=== PATIENT | male | born 1985 | race Caucasian/White ===

== ENCOUNTER 2025-04-11 09:30 | Observation (INO) | payer SELFPAY ==
[2025-04-11] VITALS (13 sets, daily range): BP systolic 130–152; BP diastolic 79–92; PULSE 79–103; RESP 17–19; TEMP 36.7–37.8; O2SAT 94–100; BMI 27.8
--- NOTE | 2025-04-11 09:55 | ED_ITS ---
Discharge Plan Prescriptions Prescriptions: No Action No Known Home Medications Referrals Follow up/Referrals: Provider,Referral, [Primary Care Provider, Medical] - See instructions Clinical Impressions Clinical Impression: Cellulitis, Elevated CK Instructions Patient Instructions: DI for Laceration Repair Print Language Print Language: Salvadorean Discharge ED Provider: Kee Connell General Adult HPI General Chief complaint: Wound/Laceration Stated complaint: 04/09/25 Poss snake bite Time Seen by Provider: 04/11/25 09:39 Mode of Arrival: Ambulatory Source of Information: Patient Description of Symptoms (Recalled from ER Triage Doc. by RN): Patient presents to ED from [facility] with concerns for some type of insect bite to the mid left solorzano. Patient states he noticed the area 2 days prior, states it has been swollen, red, warm and painful and has continued to worsen. Patient states pain is now moved from the area to his entire left leg, notes pain worsens with ambulation. History of Present Illness HPI narrative: Lane Nguyễn is a 40y male who presents to the emergency department from [facility] due to concern for possible snake bite to his left lower extremity. 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 He states that today, he noticed a pain to his left solorzano that severely worsened today, to the point that it is extremely painful to walk. Reports that he is now having pain radiating up his left leg into the left groin. He notes that there is an area of redness to his left anterior solorzano and there are 2 small circular lesions within the skin. He denies any numbness or tingling. He is not sure if he was bitten by a snake or a bug as he states that he is constantly getting small pains in his legs due to bumping into things due to the nature of his work. He does state that he was wearing pants at the time. He does not remember a single incident where he had severe pain in this area. Related Data Home Medications ?Medication ?Instructions ?Recorded ?Confirmed No Known Home Medications 04/11/2503/31 Allergies Allergy/AdvReac Type Severity Reaction Status Date / Time Penicillins Allergy Unknown Verified 04/11/25 09:57 allergy reaction [facility] Disclaimer: The information contained in this section may have been updated after the patient was seen, as this information can be updated by other users. Medical History (Updated 04/11/25 @ 12:29 by Kee Connell MD) Cellulitis Social History Smoking Status: Current every day smoker alcohol intake: never current occupational status: employed Travel in the last 8 weeks?: Outside the [facility] ROS Obtained: Yes Systems reviewed as appropriate & no additional complaints except as documented Physical Exam General General appearance: alert and in no apparent distress Head Head exam: atraumatic Eye Eye exam: Present normal appearance ENT ENT exam: Present normal external ear exam Neck Neck exam: Present full ROM Chest Chest inspection: Present symmetric chest wall rise Respiratory Respiratory exam: Present normal lung sounds bilaterally; Absent respiratory distress Cardiovascular Cardiovascular exam: Present regular rate and normal rhythm Abdominal Exam Abdominal exam: Present soft; Absent tenderness or guarding exam: Present deferred Extremities Exam Extremities exam: Present normal inspection Back Exam Back exam: Present normal inspection Neurological Exam Neurological exam: Present alert and oriented X3 Psychiatric Psychiatric exam: Present normal affect Skin Skin exam: Present warm and dry Medical Decision Making Medical Records Screening: Per USPSTF and CDC recommendations, given the prevalence of disease in our region, it is our hospital?s policy to screen for HIV and viral Hepatitis for all patients aged 18 and over and those with ongoing risk factors. Juan Inquiry Pt receiving controlled substance: No Vital Signs: 04/11/25 09:36 04/11/25 09:39 04/11/25 09:40 Temperature 98.1 F Temperature Source Oral Pulse Rate 99 H 85 Pulse Rate [Left] 98 H Respiratory Rate 19 Blood Pressure 151/87 H 147/92 H Blood Pressure [Right Arm] 151/87 H Blood Pressure Mean Blood Pressure Mean [Right Arm] 108 Blood Pressure Source [Right Arm] Automatic Cuff Blood Pressure Position [Right Arm] Sitting 02 Sat by Pulse Oximetry 94 L 96 94 L Oxygen Delivery Method Room Air 04/11/25 09:45 04/11/25 10:00 04/11/25 11:08 Temperature Temperature Source Pulse Rate 95 H 95 H 87 Pulse Rate [Left] Respiratory Rate 17 17 Blood Pressure 152/88 H Blood Pressure [Right Arm] Blood Pressure Mean 101 Blood Pressure Mean [Right Arm] Blood Pressure Source [Right Arm] Blood Pressure Position [Right Arm] 02 Sat by Pulse Oximetry 96 96 100 Oxygen Delivery Method Room Air Room Air 04/11/25 11:20 04/11/25 11:41 04/11/25 12:00 Temperature Temperature Source Pulse Rate 94 H 89 79 Pulse Rate [Left] Respiratory Rate Blood Pressure 136/84 137/81 130/90 Blood Pressure [Right Arm] Blood Pressure Mean 95 103 100 Blood Pressure Mean [Right Arm] Blood Pressure Source [Right Arm] Blood Pressure Position [Right Arm] 02 Sat by Pulse Oximetry 95 98 98 Oxygen Delivery Method Room Air 04/11/25 12:20 Temperature Temperature Source Pulse Rate Pulse Rate [Left] Respiratory Rate Blood Pressure 148/85 H Blood Pressure [Right Arm] Blood Pressure Mean 100 Blood Pressure Mean [Right Arm] Blood Pressure Source [Right Arm] Blood Pressure Position [Right Arm] 02 Sat by Pulse Oximetry Oxygen Delivery Method Lab Data Lab Results 04/11/25 09:46: WBC 15.9 H, RBC 4.65, Hgb 15.3, Hct 44.4, MCV 95.5 H, MCH 32.9 H , MCHC 34.5, RDW 13.2, Plt Count 209, MPV 10.2, Neut % (Auto) 83.0 H, Lymph % (Auto) 6.8 L, Caroline % (Auto) 8.7, Eos % (Auto) 0.9, Baso % (Auto) 0.3, Neut # (Auto) 13.2 H, Lymph # (Auto) 1.1, Caroline # (Auto) 1.4 H, Eos # (Auto) 0.2, Baso # (Auto) 0.1, PT 10.3, INR 0.92, APTT 29.3, Fibrinogen 292, Sodium 138, Potassium 4.0, Chloride 106, Carbon Dioxide 21 L, Anion Gap 15.0, BUN 15, Creatinine 0.80, Estimated Creat Clear 169, Estimated GFR 108, Est GFR ( Amer) 131, G lucose 106 H, Calcium 9.4, Total Bilirubin 0.5, AST 35, ALT 23, Alkaline Phosphatase 56, Total Creatine Kinase 296 H, Total Protein 7.6, Albumin 4.8, Globulin 2.8, Albumin/Globulin Ratio 1.7 04/11/25 10:47: Urine Color Yellow, Urine Appearance Clear, Urine pH 6.0, Ur Specific [place] 1.020, Urine Protein Negative, Urine Glucose (UA) Negative, Urine Ketones 1+, Urine Blood Negative, Urine Nitrate Negative, Urine Bilirubin Negative, Urine Urobilinogen 0.2, Ur Leukocyte Esterase Negative, Urine RBC None, Urine WBC None, Ur Squamous Epith Cells Occasional, Urine Bacteria None 04/11/25 09:46 04/11/25 09:46 Orders (Tests/Meds): ED MEDICATIONS Generic Name Dose Route Start Last Admin Trade Name Freq PRN Reason Stop Dose Admin Vancomycin/PEG/NADA/Lysine/Water 1.75 gm in 350 mls @ 175 mls/hr 04/11/25 10:30 04/11/25 12:20 Vancomycin 1.75gm/350ml (Peg) Premix IV 04/11/25 12:29 Infused ONCE ONE Infusion Discontinued Medications Generic Name Dose Route Start Last Admin Trade Name Freq PRN Reason Stop Dose Admin Lactated Ringer's 1,000 mls @ 999 mls/hr 04/11/25 10:16 04/11/25 11:25 Lactated Ringer's 1000 Ml Bag IV 04/11/25 11:16 Infused .Q1H1M ONE Infusion Ketorolac Tromethamine 30 mg 04/11/25 09:54 04/11/25 09:59 Ketorolac 30mg/Ml Vial IV 04/11/25 09:55 30 mg ONCE ONE Administration Miscellaneous 1 each 04/11/25 10:15 04/11/25 10:18 Vancomycin Consult Request NOTAPPLIC 05/11/25 10:14 Not Given CONSULT PHARMACY [facility] ORDERS Category Date Time Status Fibula/tibia XR left 2 views [XR tibia fibula LT 2V] Exams 04/11/25 10:21 Completed Stat POCUS Point of Care (ER Only) Stat Exams 04/11/25 09:40 Completed CBC w/Auto Diff [Complete Blood Count Auto Diff] Stat Lab 04/11/25 09:46 Completed CK [Creatine Kinase] Stat Lab 04/11/25 09:46 Completed CMP [Comprehensive Metabolic Panel] Stat Lab 04/11/25 09:46 Completed CRP [C-Reactive Protein] Stat Lab 04/11/25 12:23 Ordered Fibrinogen Stat Lab 04/11/25 09:46 Completed PT INR [Prothrombin Time INR] Stat Lab 04/11/25 09:46 Completed PTT [Activated Partial Thrombo Time] Stat Lab 04/11/25 09:46 Completed Procalcitonin Stat Lab 04/11/25 12:23 Ordered UA [Urinalysis and Microscopic] Stat Lab 04/11/25 10:47 Completed Blood Culture Stat Micro 04/11/25 10:14 Received Medical Decision Narrative: Lane Nguyễn is a 40y male who presents to the emergency department from [facility] due to concern for possible snake bite to his left lower extremity. 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 He states that today, he noticed a pain to his left solorzano that severely worsened today, to the point that it is extremely painful to walk. Reports that he is now having pain radiating up his left leg into the left groin. He notes that there is an area of redness to his left anterior solorzano and there are 2 small circular lesions within the skin. He denies any numbness or tingling. He is not sure if he was bitten by a snake or a bug as he states that he is constantly getting small pains in his legs due to bumping into things due to the nature of his work. He does state that he was wearing pants at the time. He does not remember a single incident where he had severe pain in this area. On arrival, patient is mildly hypertensive with blood pressure 147/92, heart rate borderline tachycardic at 95. Afebrile at 98.1 ?F. Oxygen saturation 96% on room air. Physical exam, as stated above, revealed an overall well-appearing male in no distress. He has redness and tenderness over the left anterior solorzano. There do appear to be 2 small puncture wounds in the center of the area of erythema spaced a small distance apart that could represent fang puncture wounds. Patient has a small area of redness superior to the right knee at the distal thigh. Patient has left inguinal lymphadenopathy that is tender to touch as well. Sensory function is intact. Patient is not complaining of any numbness or tingling. Pulses are intact. Differential diagnosis includes, but is not limited to: Snake envenomation, cellulitis, NSTI, brown recluse/black bite, rhabdomyolysis, DVT, among others. The most morbid conditions were considered and workup was based on these. Workup in the emergency department included: [id number] soft tissue ultrasound, [id number] DVT ultrasound, CBC, CMP, fibrinogen, CK, PT/INR, PTT, blood culture. Patient was initially treated with 30 mg of IV Toradol for pain. Patient's initial lab work showed elevated white blood cell count at 15.9 with left shift. Platelets normal at 209. Given concern for cellulitis with an elevated white count, will administer vancomycin IV at this time and give 1 L lactated ringer. CMP showed mildly elevated CK at 296, however upper limit of normal is 170. This is not 3 times upper limit of normal and does not represent rhabdomyolysis. Will obtain urinalysis to evaluate for myoglobin in the urine. Electrolytes within normal limits. Carbon dioxide mildly low at 21. I spoke with Danial Shelby MD with Toxicology about the patient's case and shared picture of the patient's leg with him after getting consent from the patient to do so, and Dr. Shelby stated given that the patient is at least 12 to 24 hours out from the initial incident, and based on what he can see from the picture, he does not feel that CroFab is necessary at this time. He did agree with workup, that included coagulation studies, fibrinogen, CBC, CMP. Stated that is not unreasonable to treat with antibiotics and NSAIDs for pain. Also recommended tetanus shot if not up-to-date. Recommended x-ray of the extremity to ensure there is no retained fang. Will order left tib-fib x-ray at this time. Patient does state that his tetanus shot is up-to-date within the last 5 years, no indication for tetanus update. I did discuss the patient's case with the hospitalist, Dr. Floyd, for admission for continued management of his cellulitis and for compartment checks. He does not appear to be in rhabdomyolysis at this time, however I do feel close monitoring is indicated in this instance. Patient is agreeable to admission at this time as well. [facility] management of his cellulitis and for compartment checks. Procedures Limited Ultrasound Interpretation:: Limited MSK/soft tissue ultrasound Indication: [-Soft tissue or bone pain -Soft tissue swelling -Soft tissue redness -Fever -Decreased range of motion -Crepitus] Identified structures: Location: [] Findings: [-Normal soft tissue ultrasound] [-Abscess. Size (cm): -Cellulitis -Subcutaneous air -Foreign body] Impression: [-Normal limited soft tissue ultrasound] [-Abscess of soft tissue -Cellulitis of soft tissue -Foreign body in soft tissue -Necrotizing soft tissue infection] Images [were saved] to permanent archive The study [was] technically adequate Soft Tissue CPT Codes: CPT Neck: 42030-06 CPT Upper extremity: 54776-85 CPT Axilla: 51240-49 CPT Chest wall: 28913-97 CPT Breast: 22770-94-FS/LT (complete), 10971-07-HJ/LT (limited), CPT Upper Back: 66730-35 CPT Lower Back: 53710-01 CPT Abdominal Wall: 26258-23 CPT Pelvic Wall: 57285-18 CPT Lower Extremity: 24208-73 CPT Other Soft Tissue: 99529-99 This study was performed by me, and I personally interpreted all images/videos. Based on my clinical judgement, these images were [adequate/inadequate] and [did/did not] necessitate further imaging. Indication: Limited compression ultrasonography of the [RIGHT or LEFT or BILATERAL] [upper/lower extremity] was performed to evaluate for non-compressibility of the deep veins in the patient. The ultrasound was performed with the following indications, as noted in the H&P: [Leg/arm pain:] [L/R/bilateral] [Leg/arm swelling:] [L/R/bilateral] [Leg/arm erythema:] [L/R/bilateral] [-Chest Pain -Dyspnea -Tachypnea] Identified structures: [RIGHT or LEFT or BILATERAL] [common femoral vein, femoral vein, popliteal vein were examined.] [Ulnar vein, radial vein, cephalic vein, basilic vein, axillary vein.] Findings: Upper extremity: Right UV: [Good compressibility] Right RV: [Good compressibility] Right Cephalic vein: [Good compressibility] Right Basilic vein: [Good compressibility] Right Axillary vein: [Good compressibility] Left UV[Good compressibility] Left RV: [Good compressibility] Left Cephalic vein: [Good compressibility] Left Basilic vein: [Good compressibility] Left Axillary vein: [Good compressibility] Lower Extremity: Right CFV: [Good compressibility] Right FV: [Good compressibility] Right Popliteal vein: [Good compressibility] Left CFV: [Good compressibility] Left FV [Good compressibility] Left Popliteal vein: [Good compressibility] Impression: [Normal DVT ultrasound] Images [were saved] to permanent archive The study [was] technically adequate CPT: 56786-53-GR 44064-57-JZ 10765-91 (complete bilateral study) This study was performed by me, and I personally interpreted all images/videos. Based on my clinical judgement, these images were [adequate/inadequate] and [did/did not] necessitate further imaging. Critical Care Critical Care Time Critical Care Time: No
[2025-04-11 09:59] LABS: Hematocrit 44.4 % (42.0-52.0); Hemoglobin 15.3 g/dL (14.1-18.0); Immature Granulocytes % 0.3 %; Mean Corpuscular HGB Conc 34.5 g/dL (31.8-35.4); Mean Corpuscular Hemoglobin 32.9 pg (27.0-31.2); Mean Corpuscular Volume 95.5 fl (80-94); Nucleated Red Blood Cells % 0 %; Platelet Count 209 K/mm3 (142-424); Red Blood Count 4.65 M/mm3 (4.60-6.20); Red Cell Distribution Width-SD 46.5 fL; White Blood Count 15.9 K/mm3 (4.8-10.8)
[2025-04-11] MEDS: KETOROLAC 30MG/ML VIAL 30 MG IV (09:59)
[2025-04-11 10:06] LABS: Alanine Aminotransferase 23 U/L (12-78); Albumin Level 4.8 g/dl (3.5-5.0); Albumin/Globulin Ratio 1.7 (1.1-1.8); Alkaline Phosphatase 56 U/L (38-126); Anion Gap 15.0 mEq/L (5-15); Aspartate Amino Transferase 35 U/L (17-59); Bilirubin,Total 0.5 mg/dl (0.2-1.3); Blood Urea Nitrogen 15 mg/dl (9-20); Calcium 9.4 mg/dl (8.4-10.2); Carbon Dioxide 21 mmol/L (22.0-30.0); Chloride 106 mmol/L (98-107); Creatine Kinase 296 U/L (55-170); Creatinine Clearance Estimated 169 mL/min (50-200); Creatinine,Serum 0.80 mg/dl (0.66-1.25); Estimated Glomerular Filt Rate 108 ml/min (>60); GFR (African American) 131 ML/MIN (>60); Globulin 2.8 g/dL (1.3-3.2); Glucose 106 mg/dl (74-100); Potassium 4.0 mmoL/L (3.5-5.1); Sodium 138 mmol/L (136-145); Total Protein,Serum 7.6 g/dl (6.3-8.2)
--- NOTE | 2025-04-11 10:21 | XR_ITS ---
FINAL REPORT CLINICAL HISTORY: snake bite, left solorzano, retained fang? FINDINGS: AP and lateral views of the left tibia and fibula were obtained. There is no prior exam for comparison. There is no acute fracture of the left tibia or fibula. The knee and ankle appear intact. There is no evidence of retained foreign body. IMPRESSION: No acute abnormality of the left tibia or fibula. No evidence of retained foreign body. Reviewed, Interpreted and Dictated by Ivory Murry MD Transcribed by Hetal Ordaz Authenticated and [facility]
[2025-04-11] MEDS: LACTATED RINGERS 1000ML 1,000 ML 999 ML IV (10:23)
[2025-04-11] MEDS: VANCOMYCIN/WATER FOR INJ (PEG) 1.75 GM/350 ML PIGGYBACK IV (10:24)
[2025-04-11 10:42] LABS: Fibrinogen 292 mg/dL (229.9-363.5); INR 0.92 (0.9-1.1); Prothrombin Time 10.3 seconds (10.1-12.5)
[2025-04-11 10:46] LABS: Activated Partial Thrombo Time 29.3 seconds (22.8-30.6)
[2025-04-11 10:51] LABS: Microscopic, Urine URINE MICROSCOPIC (MICROSCOPIC)
[2025-04-11 10:53] LABS: Bilirubin,Urine Negative (Negative); Color,Urine YELLOW (Yellow); Glucose,Urine (UA) Negative (Negative); Ketones,Urine 1+ (Negative); Leukocyte Esterase,Urine Negative (Negative); PH,Urine 6.0 (5.0-8.5); Protein,Urine Negative (Negative); Specific Gravity, Urine 1.020 (1.005-1.030); Urobilinogen,Urine 0.2 EU/dl (0.2)
[2025-04-11 11:00] LABS: Squamous Epithelial Cell,Urine Occasional #/hpf (0-5)
--- NOTE | 2025-04-11 11:18 | PC.NURSE ---
reached out to the hospitalist about possible admission.
--- NOTE | 2025-04-11 12:24 | PC.NURSE ---
precipitator supervisor notified of need for admission.
--- NOTE | 2025-04-11 12:38 | PC.NURSE ---
Patient report called to SANJUANA Yung
[2025-04-11 12:46] LABS: C-Reactive Protein 19.5 mg/L (0-4)
--- NOTE | 2025-04-11 12:55 | PC.NURSE ---
arrived by w/c from ED
[2025-04-11 13:00] LABS: Procalcitonin 0.058 ng/mL (0.0-2.0)
[2025-04-11] MEDS: METHYLPREDNISOLONE SOD SUCC 40MG VIAL 60 MG IV (14:01)
--- NOTE | 2025-04-11 16:23 | PC.WOUNDNOTE ---
redness/swelling noted to left mid solorzano
--- NOTE | 2025-04-11 17:00 | P.HP_ITS ---
History of Present Illness *Admission Date: 04/11/25 *Reason for visit:: Left leg pain *History of present illness: # PFSH PFSH Disclaimer: The information contained in this section may have been updated after the patient was seen, as this information can be updated by other users. Medical History Cellulitis Family History (Updated 04/11/25 @ 13:11 by Malia Ramey RN) Other No significant family history Social History (Updated 04/11/25 @ 13:13 by Malia Ramey RN) Smoking Status: Current every day smoker alcohol intake: never current occupational status: employed Travel in the last 8 weeks?: Outside the continental [place] Have you lived/traveled outside US in past 30 days?: No Contact w/someone who lives/traveled outside US past 30 days?: No Exposure to someone with infectious disease in past 14 days?: No Do you have a fever (greater than 100.4 F or 38 C)?: No Have you tested positive for COVID-19?: No Exposed to someone with COVID-19 in past 14 days?: No Do you have a sore throat?: No Do you have a cough?: No Do you have any weakness?: No Are you experiencing any nausea/vomitting?: No Do you have any diarrhea?: No Are you experiencing any unusual bleeding?: No Do you have any muscle aches/pain?: No Do you have any abdominal pain?: No Are you experiencing loss of taste or smell?: No Other Medical History Have you received the Flu Vaccine for this season: Yes Have you received the Pneumonia Vaccine: No Meds Home Medications and Allergies Home Medications ?Medication ?Instructions ?Recorded ?Confirmed ?Type No Known Home Medications 04/11/2503/31 History New Prescriptions to Start Prescriptions: Allergies Allergy/AdvReac Type Severity Reaction Status Date / Time Penicillins Allergy Unknown Verified 04/11/25 09:57 allergy reaction Exam Data for Last 24 hours Vital signs and Labs for Last 24 Hours: Temp Pulse Resp BP Pulse Ox O2 Del Method 99.5 F 92 H 18 146/86 H 95 Room Air 04/11/25 16:00 04/11/25 16:00 04/11/25 16:00 04/11/25 16:00 04/11/25 16:00 04/11/25 16:00 Laboratory Results - last 24 hr 04/11/25 09:46: WBC 15.9 H, RBC 4.65, Hgb 15.3, Hct 44.4, MCV 95.5 H, MCH 32.9 H , MCHC 34.5, RDW 13.2, Plt Count 209, MPV 10.2, Neut % (Auto) 83.0 H, Lymph % (Auto) 6.8 L, [place] % (Auto) 8.7, Eos % (Auto) 0.9, Baso % (Auto) 0.3, Neut # (Auto) 13.2 H, Lymph # (Auto) 1.1, [place] # (Auto) 1.4 H, Eos # (Auto) 0.2, Baso # (Auto) 0.1, PT 10.3, INR 0.92, APTT 29.3, Fibrinogen 292, Sodium 138, Potassium 4.0, Chloride 106, Carbon Dioxide 21 L, Anion Gap 15.0, BUN 15, Creatinine 0.80, Estimated Creat Clear 169, Estimated GFR 108, Est GFR ( Amer) 131, Glucose 106 H, Calcium 9.4, Total Bilirubin 0.5, AST 35, ALT 23, Alkaline Phosphatase 56, Total Creatine Kinase 296 H, C-Reactive Protein 19.5 H, Total Protein 7.6, Albumin 4.8, Globulin 2.8, Albumin/Globulin Ratio 1.7, Procalcitonin 0.058 04/11/25 10:47: Urine Color Yellow, Urine Appearance Clear, Urine pH 6.0, Ur Specific [place] 1.020, Urine Protein Negative, Urine Glucose (UA) Negative, Urine Ketones 1+, Urine Blood Negative, Urine Nitrate Negative, Urine Bilirubin Negative, Urine Urobilinogen 0.2, Ur Leukocyte Esterase Negative, Urine RBC None, Urine WBC None, Ur Squamous Epith Cells Occasional, Urine Bacteria None I & O for Last 24 hours: Intake & Output 04/08/25 04/09/25 04/10/25 04/11/25 23:59 23:59 23:59 23:59 Intake Total 1350 / 1350 Output Total 0 / 0 Balance 1350 / 1350 Weight 95.708 kg Constitutional Constitutional: no acute distress *Routine HEENT Exam Head: Present normocephalic Eye: Present EOMI and PERRL ENT: Present mucous membranes moist *Routine Neck Exam Neck: Present supple; Absent lymphadenopathy *Routine Respiratory Exam Respiratory: Present CTA bilaterally *Routine Cardiovascular Exam Cardiovascular: Present RRR *Routine Abdominal Exam Abdominal: Present soft and normoactive bowel sounds; Absent tenderness *Routine Rectal Exam Rectal:: deferred *Routine Genitalia Exam Genitalia:: deferred *Routine Extremities Exam Extremities: Absent cyanosis, clubbing or edema Comments: Left lower extremity circular erythema about 6 x 6 cm with central to incision sites. No tenderness at this time. *Routine Skin Exam Skin: Present warm; Absent rash *Routine Neurological Exam Neurological: Present alert and oriented X3 Assessment and Plan *Assessment and plan (1) Cellulitis: Status: Acute Category: Medical Code(s): L03.90 - Cellulitis, unspecified (2) Elevated CK: Status: Acute Category: Medical Code(s): R74.8 - Abnormal levels of other serum enzymes Plan Lane Nguyễn is a 40-year-old male with no known medical history significant medical history who presents with 2-day onset of left lower extremity swelling, pain. 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 He states he did not feel any triggering incident, including a bite but did notice it at the end of the day. It is above left lateral malleolus there does seem to be 2 small incision sites where a bite could have happened. There is surrounding redness, tenderness. Pain became progressively worse so patient decided to come to the ED. Workup in the ED significant for WBC 15.9 CK2 96, CRP 19.5. There was concern for snakebite, so ED provider reached out to toxicology who advised CroFab is not needed at this time as it is beyond the 12 to 24-hour elizabeth. Agreed with coagula studies which are normal, including fibrinogen. Given significant swelling, pain including left inguinal lymphadenopathy, ED provider discussed case with me and I decided to admit patient for further evaluation and management. #Cellulitis versus dermatitis ? Presented with progressive left lower extremity circular erythema, swelling, pain above the lateral malleolus. ? Given IV vancomycin, Toradol in the ED. Continues to have pain upon arrival to the floor. Significantly improved with IV Solu-Medrol 60 mg. ? Initial WBC 15.9, CRP 19.5. ? Started ceftriaxone 1g daily, doxycycline 100 mg twice daily, prednisone 40 mg. Follow-up response. ? Follow-up morning CBC, CRP. #Rhabdomyolysis ? Initial CK 296 no signs of compartment syndrome. ? Continue supportive therapy, tolerating oral rehydration. Full code DVT prophylaxis: Lovenox 40 mg
[2025-04-11] MEDS: CEFTRIAXONE 1 GM 1 GM in 0.9 % SODIUM CHLORIDE 50 ML IV (17:19)
[2025-04-11] MEDS: DOXYCYCLINE HYCL 100 MG TABLET PO ×2 (17:19→20:30)
--- NOTE | 2025-04-12 01:44 | PC.NURSE ---
Pt AOx4, independent. VSS. No significant changes at this time. Pt is currently resting in bed with eyes closed. Respirations even and unlabored. Bed is low, locked, and call light is in reach.
[2025-04-12 04:00] VITALS: BP 136/73; PULSE 94; RESP 17; TEMP 37.1; O2SAT 94; BMI 28.5
[2025-04-12 07:15] LABS: Alanine Aminotransferase 20 U/L (12-78); Albumin Level 4.2 g/dl (3.5-5.0); Anion Gap 11.6 mEq/L (5-15); Aspartate Amino Transferase 25 U/L (17-59); Bilirubin,Total 0.6 mg/dl (0.2-1.3); Blood Urea Nitrogen 10 mg/dl (9-20); Calcium 9.0 mg/dl (8.4-10.2); Carbon Dioxide 24 mmol/L (22.0-30.0); Chloride 105 mmol/L (98-107); Creatinine Clearance Estimated 154 mL/min (50-200); Creatinine,Serum 0.90 mg/dl (0.66-1.25); Estimated Glomerular Filt Rate 94 ml/min (>60); GFR (African American) 114 ML/MIN (>60); Globulin 2.9 g/dL (1.3-3.2); Glucose 112 mg/dl (74-100); Potassium 3.6 mmoL/L (3.5-5.1); Sodium 137 mmol/L (136-145); Total Protein,Serum 7.1 g/dl (6.3-8.2)
[2025-04-12 07:16] LABS: Albumin/Globulin Ratio 1.4 (1.1-1.8); Alkaline Phosphatase 50 U/L (38-126)
[2025-04-12 07:17] LABS: Hematocrit 43.7 % (42.0-52.0); Hemoglobin 14.5 g/dL (14.1-18.0); Immature Granulocytes % 0.8 %; Mean Corpuscular HGB Conc 33.2 g/dL (31.8-35.4); Mean Corpuscular Hemoglobin 31.8 pg (27.0-31.2); Mean Corpuscular Volume 95.8 fl (80-94); Nucleated Red Blood Cells % 0 %; Platelet Count 184 K/mm3 (142-424); Red Blood Count 4.56 M/mm3 (4.60-6.20); Red Cell Distribution Width-SD 46.4 fL; White Blood Count 18.2 K/mm3 (4.8-10.8)
[2025-04-12 07:53] VITALS: BP 135/80; PULSE 88; RESP 16; TEMP 37; O2SAT 98
[2025-04-12] MEDS: DOXYCYCLINE HYCL 100 MG TABLET PO (08:15)
[2025-04-12] MEDS: HYDROCODONE/APAP 5/325 MG TABLET 2 TAB PO (08:19)
--- NOTE | 2025-04-12 11:16 | EXP.DC.SUM ---
General Admission date:: 04/11/25 HPI HPI HPI: Lane Nguyễn is a 40-year-old male with no known medical history significant medical history who presents with 2-day onset of left lower extremity swelling, pain. He states it began about 2 days ago when he was at a [place]ite in the [place] cellular towers. He states he did not feel any triggering incident, including a bite but did notice it at the end of the day. It is above left lateral malleolus there does seem to be 2 small incision sites where a bite could have happened. There is surrounding redness, tenderness. Pain became progressively worse so patient decided to come to the ED. Workup in the ED significant for WBC 15.9 CK2 96, CRP 19.5. There was concern for snakebite, so ED provider reached out to toxicology who advised CroFab is not needed at this time as it is beyond the 12 to 24-hour elizabeth. Agreed with coagula studies which are normal, including fibrinogen. Given significant swelling, pain including left inguinal lymphadenopathy, ED provider discussed case with me and I decided to admit patient for further evaluation and management. Hospital Course Hospital Course Hospital Course: Lane Nguyễn is a 40-year-old male with no known medical history significant medical history who presents with 2-day onset of left lower extremity swelling, pain. He states it began about 2 days ago when he was at a [place]ite [place] the [place] [employer] towers. He states he did not feel any triggering incident, including a bite but did notice it at the end of the day. It is above left lateral malleolus there does seem to be 2 small incision sites where a bite could have happened. There is surrounding redness, tenderness. Pain became progressively worse so patient decided to come to the ED. Workup in the ED significant for WBC 15.9 CK2 96, CRP 19.5. There was concern for snakebite, so ED provider reached out to toxicology who advised CroFab is not needed at this time as it is beyond the 12 to 24-hour elizabeth. Agreed with coagula studies which are normal, including fibrinogen. Given significant swelling, pain including left inguinal lymphadenopathy, ED provider discussed case with me and I decided to admit patient for further evaluation and management. #Cellulitis versus dermatitis ? Presented with progressive left lower extremity circular erythema, swelling, pain. There does seem to be 2 incisions suspicious for bite suarez. Patient states they were [place], does not recall any ticks. ? Given IV vancomycin, Toradol in the ED upon arrival to the floor, patient continued to have pain which improved with IV Solu-Medrol 60 mg. ? Initial WBC 15.9, CRP 19.5. WBC did bump to 18.2 on day of discharge, likely steroid effect. No signs of sepsis. ? Treated with IV ceftriaxone, doxycycline during admission. Lesion less tender today, but slightly has grown in size but stable. ? Discharged with Bactrim DS and doxycycline 100 mg for 8 more days, meloxicam and [place] for pain control. Did not continue steroids in setting of possible STI. ? Will follow-up with Dr. Taveras within 1 week. #Rhabdomyolysis ? Initial CK 296, improved to 109 on day of discharge. Exam Data for Last 24 hours Vital signs and Labs for Last 24 Hours: Temp Pulse Resp BP Pulse Ox O2 Del Method 98.6 F 88 16 135/80 98 Room Air 04/12/25 07:53 04/12/25 07:53 04/12/25 07:53 04/12/25 07:53 04/12/25 07:53 04/12/25 11:00 Laboratory Results - last 24 hr 04/11/25 09:46: C-Reactive Protein 19.5 H, Procalcitonin 0.058 04/12/25 06:40: WBC 18.2 H, RBC 4.56 L, Hgb 14.5, Hct 43.7, MCV 95.8 H, MCH 31.8 H, MCHC 33.2, RDW 12.9, Plt Count 184, MPV 10.7 H, Neut % (Auto) 85.1 H, Lymph % (Auto) 5.7 L, Bowman % (Auto) 8.1, Eos % (Auto) 0.1, Baso % (Auto) 0.2, Neut # (Auto) 15.5 H, Lymph # (Auto) 1.0, Bowman # (Auto) 1.5 H, Eos # (Auto) 0.0, Baso # (Auto) 0.0, Sodium 137, Potassium 3.6, Chloride 105, Carbon Dioxide 24, Anion Gap 11.6, BUN 10 D, Creatinine 0.90, Estimated Creat Clear 154, Estimated GFR 94, Est GFR ( Amer) 114, Glucose 112 H, Calcium 9.0, Total Bilirubin 0.6, AST 25 D, ALT 20, Alkaline Phosphatase 50, Total Protein 7.1, Albumin 4.2 D, Globulin 2.9, Albumin/Globulin Ratio 1.4 I & O for Last 24 hours: Intake & Output 04/09/25 04/10/25 04/11/25 04/12/25 23:59 23:59 23:59 23:59 Intake Total 1400 / 1400 480 / 480 Output Total 0 / 0 0 / 0 Balance 1400 / 1400 480 / 480 Weight 95.708 kg 97.522 kg Microbiology Reports for the Last 24 Hours: Microbiology 04/11/25 10:14 Blood Blood Culture - Preliminary NO GROWTH AFTER 24 HOURS 04/11/25 10:10 Blood Blood Culture - Preliminary NO GROWTH AFTER 24 HOURS Constitutional Constitutional: no acute distress *Routine HEENT Exam Head: Present normocephalic Eye: Present EOMI and PERRL ENT: Present mucous membranes moist *Routine Neck Exam Neck: Present supple; Absent lymphadenopathy *Routine Respiratory Exam Respiratory: Present CTA bilaterally *Routine Cardiovascular Exam Cardiovascular: Present RRR *Routine Abdominal Exam Abdominal: Present soft and normoactive bowel sounds; Absent tenderness *Routine Extremities Exam Extremities: Absent cyanosis, clubbing or edema Comments: Left lower extremity circular erythema about 6 x 6 cm with central to incision sites. No tenderness at this time. *Routine Skin Exam Skin: Present warm; Absent rash *Routine Neurological Exam Neurological: Present alert and oriented X3 Results Data Completed and Pending Labs on day of discharge: Labs from last 24 hours 04/12/25 04/11/25 06:40 09:46 WBC 18.2 H RBC 4.56 L Hgb 14.5 Hct 43.7 MCV 95.8 H MCH 31.8 H MCHC 33.2 RDW 12.9 Plt Count 184 MPV 10.7 H Neut % (Auto) 85.1 H Lymph % (Auto) 5.7 L Bowman % (Auto) 8.1 Eos % (Auto) 0.1 Baso % (Auto) 0.2 Neut # (Auto) 15.5 H Lymph # (Auto) 1.0 Bowman # (Auto) 1.5 H Eos # (Auto) 0.0 Baso # (Auto) 0.0 Sodium 137 Potassium 3.6 Chloride 105 Carbon Dioxide 24 Anion Gap 11.6 BUN 10 D Creatinine 0.90 Estimated Creat Clear 154 Estimated GFR 94 Est GFR ( Amer) 114 Glucose 112 H Calcium 9.0 Total Bilirubin 0.6 AST 25 D ALT 20 Alkaline Phosphatase 50 C-Reactive Protein 19.5 H Total Protein 7.1 Albumin 4.2 D Globulin 2.9 Albumin/Globulin Ratio 1.4 Procalcitonin 0.058 Preliminary micro results at discharge 04/11/25 10:14 Blood Culture - Preliminary Blood NO GROWTH AFTER 24 HOURS 04/11/25 10:10 Blood Culture - Preliminary Blood NO GROWTH AFTER 24 HOURS DS: Diagnosis Discharge Diagnosis (1) Cellulitis: Status: Acute Code(s): L03.90 - Cellulitis, unspecified (2) Elevated CK: Status: Acute Code(s): R74.8 - Abnormal levels of other serum enzymes Meds Home Medications and Allergies Home Medications ?Medication ?Instructions ?Recorded ?Confirmed ?Type doxycycline monohydrate 100 mg 100 mg PO BID 7 days #14 caps 04/12/25 Rx capsule hydrocodone 5 mg-acetaminophen 325 1 - 2 tab PO Q6H PRN pain #14 tabs 04/12/25 Rx mg tablet meloxicam 7.5 mg tablet 7.5 mg PO BIDP PRN pain #14 tabs 04/12/25 Rx sulfamethoxazole 800 1 tab PO BID 8 days #16 tabs 04/12/25 Rx mg-trimethoprim 160 mg tablet (Bactrim DS) New Prescriptions to Start Prescriptions: doxycycline monohydrate [place] hydrocodone-acetaminophen [place] meloxicam [place] sulfamethoxazole-trimethoprim [Bactrim DS] [place] Allergies Allergy/AdvReac Type Severity Reaction Status Date / Time Penicillins Allergy Unknown Verified 04/11/25 09:57 allergy reaction Discharge Plan Disposition Patient Disposition: Home, Self-Care Condition: Fair Follow up Plan Follow up with: Danny Taveras MD [Staff Physician, Family Practice] - 1 week Prescriptions/Medication Reconciliation: New sulfamethoxazole-trimethoprim [Bactrim DS] 800-160 mg tablet 1 tab PO BID 8 Days Qty: 16 0RF meloxicam 7.5 mg tablet 7.5 mg PO BIDP PRN (Reason: pain) Qty: 14 0RF hydrocodone-acetaminophen 5-325 mg tablet 1 - 2 tab PO Q6H PRN (Reason: pain) Qty: 14 0RF doxycycline monohydrate 100 mg capsule 100 mg PO BID 7 Days Qty: 14 0RF Problem Reconciliation Problems Reviewed?: Yes Patient Discharge Instructions Patient Instructions: Cellulitis Print Language: Gabonese Providers Primary Care Provider: Provider,Referral Admit Provider: Red Floyd Attending Provider: Red Floyd
[2025-04-12 11:20] LABS: Creatine Kinase 109 U/L (55-170)
== END 2025-04-12 12:05 | disposition home or self-care (01) ==
LOC: ER 09:42 → 2ND 12:31
PROVIDERS: Admitting Provider Student in an Organized Health Care Education/Training Program; Emergency Provider Student in an Organized Health Care Education/Training Program; Visit Provider Student in an Organized Health Care Education/Training Program
DX: L03.90 Cellulitis, unspecified (principal); M62.82 Rhabdomyolysis; R74.8 Abnormal levels of other serum enzymes; R59.0 Localized enlarged lymph nodes; T63.001A Toxic effect of unspecified snake venom, accidental (unintentional), initial encounter; Y92.79 Other farm location as the place of occurrence of the external cause; Z88.0 Allergy status to penicillin; Z79.1 Long term (current) use of non-steroidal anti-inflammatories (NSAID); Z79.891 Long term (current) use of opiate analgesic
CPT/HCPCS: 76999; 36415; 73590; 76536; 76604; 76641; 76705; 76857; 76882; 80053; 81001; 82550; 84145; 85025; 85384; 85610; 85730; 86140; 87040; 93970; 96361; 96365; 96366; 96367; 96372; 96375; 99284; G0378; J0696; J1650; J1885; J2919; J3375; J7120